=== PATIENT | male | born 1955 | race Caucasian/White ===

== ENCOUNTER → 2024-01-04 | Outpatient (CLI) | payer MEDICARE ==
--- NOTE | 2024-01-05 13:33 | MR ---
EXAMINATION TYPE: MR knee LT wo con DATE OF EXAM: 01/04/2024 COMPARISON: None HISTORY: Left knee pain. TECHNIQUE: Multiplanar, multisequence imaging of the right knee is performed without IV contrast. FINDINGS: There is a tiny joint effusion. There is no bone contusion or fracture. There is a large horizontal tear and into the inferior surface of the body and posterior horn medial meniscus. The lateral meniscus is intact. The cruciate and collateral ligaments are intact. Patellar and quadriceps tendons are normal. There is mild chondromalacia patella involving the medial patellar facet cartilage. IMPRESSION: 1. Tear of the body and posterior horn of the medial meniscus as described. 2. No ligamentous injury. 3. Mild chondromalacia patella. 4. Tiny joint effusion.
== END | disposition home or self-care (01) ==
LOC: RADMRIMAIN 12:48
PROVIDERS: ATTEND Orthopaedic Surgery
DX: S83.242A Other tear of medial meniscus, current injury, left knee, initial encounter (principal); M25.462 Effusion, left knee; M22.42 Chondromalacia patellae, left knee

== ENCOUNTER → 2024-01-30 | Outpatient (CLI) | payer MEDICARE ==
--- NOTE | 2024-01-30 19:59 | MR ---
EXAMINATION TYPE: MR knee RT wo con DATE OF EXAM: 01/30/2024 COMPARISON: None HISTORY: Right knee pain TECHNIQUE: Multiplanar, multisequence imaging of the right knee is performed without IV contrast. FINDINGS: There is no bone contusion or fracture. There is no joint effusion. The medial and lateral collateral ligaments and cruciate ligaments are intact. There is a complex horizontal tear of the posterior horn and body of the medial meniscus extending to the inferior surface. The lateral meniscus is intact. There is mild chondromalacia patella. The quadriceps and patellar tendons are intact. IMPRESSION: 1. Tear of the medial meniscus as described above. 2. No ligamentous injury. 3. no bone contusion, fracture or joint effusion. 4. mild chondromalacia patella
== END | disposition home or self-care (01) ==
LOC: RADMRIMAIN 10:47
PROVIDERS: ATTEND Orthopaedic Surgery
DX: S83.241A Other tear of medial meniscus, current injury, right knee, initial encounter (principal)

== ENCOUNTER 2024-02-20 09:07 | Day surgery (SDC) | payer MEDICARE ==
[2024-02-15 17:28] VITALS: BMI 25.0
--- NOTE | 2024-02-19 12:22 | HP ---
HISTORY AND PHYSICAL DATE OF SCHEDULED SURGERY: 02/20/2024. HISTORY OF PRESENT ILLNESS: Pedro León is a 68-year-old gentleman seen with progressive left knee pain. We discussed options. He elected to proceed with left knee arthroscopy. Consent was obtained. Cardiac clearance was provided. PAST MEDICAL HISTORY: Hypertension, lwq-pyvpwva-jabxoezpo diabetes, and hyperlipidemia. PAST SURGICAL HISTORY: Noncontributory. DAILY MEDICATIONS: 1. Aspirin. 2. Lisinopril. 3. Metformin. 4. Metoprolol. 5. Pravastatin. 6. Tylenol. ALLERGIES: None. SOCIAL HISTORY: Denies tobacco use. PHYSICAL EVALUATION OF LEFT KNEE: His range of motion is 0 to 130 degrees. Mild effusion. Tenderness to medial joint line. Positive medial Amber's. Ligaments stable. Hip rotation without pain. Distal neurovascular exam is intact. IMAGING STUDIES: Left knee radiographs revealed mild osteoarthritis. Left knee MRI revealed medial meniscal tear. IMPRESSION: 1. Internal derangement of left knee with medial meniscal tear. 2. Hypertension. 3. Hyperlipidemia. 4. Zjt-ycunlup-sdpnmactd diabetes. PLAN: Left knee arthroscopy with partial medial meniscectomy and debridement. MMODL / IJN: [id number] /
[~2024-02-20 09:07] MED LIST: DEXAMETHASONE SOD PHOSPHATE 4 MG/ML 1 ML VIAL IV ONE; HYDROmorphone 0.5 MG/0.5 ML SYRINGE IVP PRN; ONDANSETRON 4 MG/2 ML VIAL IVP ONE; fentaNYL (PF) 50 MCG/ML 2 ML AMP IV PRN
[2024-02-20 09:58] LABS: Glucose,Whole Blood 107 mg/dL (70-110)
[2024-02-20] MEDS: LACTATED RINGERS 1,000 ML IV SCH (10:00)
[2024-02-20] MEDS: ONDANSETRON 4 MG/2 ML VIAL IVP STA (10:01)
[2024-02-20] MEDS: DEXAMETHASONE SOD PHOSPHATE 4 MG/ML 1 ML VIAL IVP STA (10:01)
[2024-02-20] MEDS: IV FLUID CONTINUATION 1,000 ML IV ONE (10:02)
[2024-02-20] MEDS ORDERED: MIDAZOLAM 2 MG/2 ML VIAL ONE (10:20)
[2024-02-20] MEDS ORDERED: LIDOCAINE 1% INJ 10MG/ML (20 ML MDV) ONE (10:20)
[2024-02-20] MEDS ORDERED: GLYCOPYRROLATE 0.2 MG/ML 2 ML VIAL ONE (10:20)
[2024-02-20] MEDS ORDERED: PROPOFOL 10 MG/ML 20 ML VIAL IV ONE (10:20)
[2024-02-20] MEDS ORDERED: fentaNYL (PF) 50 MCG/ML 2 ML AMP ONE (10:20)
[2024-02-20] MEDS: BUPIVACAINE (PF) 0.25% 30 ML VIAL SQ ONE (10:49)
--- NOTE | 2024-02-20 11:19 | P.OP ---
Date of Procedure: 02/20/24 Preoperative Diagnosis: Internal derangement left knee Postoperative Diagnosis: 1. Tear medial and lateral meniscus left knee 2. Grade IV chondromalacia femoral sulcus left knee 3. Reactive synovitis medial, lateral and suprapatellar compartments left knee 4. Grade II/III chondromalacia medial femoral condyle left knee Procedure(s) Performed: 1. Arthroscopic partial medial and lateral meniscectomy left knee 2. Arthroscopic microfracture femoral sulcus left knee 3. Arthroscopic partial synovectomy medial, lateral and suprapatellar compartments left knee 4. Arthroscopic chondroplasty medial femoral condyle left knee Anesthesia: ASAA, local Surgeon: Silas Moreno Estimated Blood Loss (ml): 6 Pathology: none sent Condition: stable Disposition: PACU Indications for Procedure: 68-year-old patient seen with progressive left knee pain. After having treatment options discussed, he elected to proceed with arthroscopy Operative Findings: See description of procedure Description of Procedure: Patient was taken to the operative suite. Patient underwent a general anesthetic by the department of anesthesia. Patient was given preoperative antibiotics. The left lower extremity was placed in a well-padded arthroscopic leg riojas. The left leg was prepped and draped in the normal sterile orthopedic fashion. A lateral parapatellar and suprapatellar incision was made. Trochars were inserted. Arthroscopy was initiated. Suprapatellar pouch revealed diffuse thick reactive synovitis. The patellofemoral joint appeared to articular congruently. There was grade III/IV chondromalacia of the femoral sulcus with osteochondral flap tears present. The scope was guided into the medial gutter. No loose bodies or plica were identified. The scope was then guided into the medial compartment. A medial parapatellar incision was made. Trocar inserted followed by probe. There was a complex tear involving the mid body and posterior horn of the medial meniscus. There were grade II/III chondromalacia changes medial femoral condyle with some osteochondral flap tears. There was some thick reactive synovitis anteriorly. I performed a partial medial meniscectomy getting down to stable meniscal tissue. I performed a chondroplasty of the medial femoral condyle getting down to stable osteochondral tissue. I performed a partial synovectomy decompressing the reactive synovitis. The residual meniscus was probed and was found to be stable. The residual osteochondral surface medial femoral condyle was stable. There was good decompression of the synovitis. Scope and probe were then guided into the intercondylar notch. Cruciates were identified, probed and found to be stable. The scope and probe were then guided into lateral compartment. There was a radial tear involving the anterior horn of the lateral meniscus. There were grade I chondromalacia changes lateral femoral condyle without tears. There was some thick reactive synovitis anteriorly. I performed a partial lateral meniscectomy getting down to stable meniscal tissue. I performed a partial synovectomy decompressing the reactive synovitis. The residual meniscus was stable. There was good decompression of the synovitis. The scope was in guided back into the suprapatellar compartment. I used a motorized shaver into the suprapatellar compartment. I debrided some piecemeal fragments of meniscus that I encountered. I performed a chondroplasty of the femoral sulcus getting down to stable osteochondral tissue. I performed a partial synovectomy decompressing the thick reactive synovitis. I did note an area of grade IV chondromalacia involving the medial aspect of the femoral sulcus measuring 8 mm x 1.2 cm. I introduced a microfracture awl and I performed microfracture to that area penetrating the bone with resultant bleeding at the microfracture site. The residual osteochondral surface was stable. I now took more look around the entire knee, no residual debris. Instruments were now removed from the joint. The joint was infiltrated with .25% Marcaine. Steri-Strips were applied to the portal sites. Sterile dressings were applied. The patient was placed into a CHRIS hose. No tourniquet was utilized. The patient was awakened, transferred to a bed and taken to recovery stable satisfactory condition.
[2024-02-20 11:41] VITALS: TEMP 97.3
[2024-02-20 12:53] VITALS: BP 131/75; PULSE 50; RESP 18
== END 2024-02-20 12:58 | disposition home or self-care (01) ==
LOC: OR 09:07
PROVIDERS: ATTEND Orthopaedic Surgery
DX: S83.232A Complex tear of medial meniscus, current injury, left knee, initial encounter (principal); S83.282A Other tear of lateral meniscus, current injury, left knee, initial encounter; M94.262 Chondromalacia, left knee; M65.862 Other synovitis and tenosynovitis, left lower leg; E11.69 Type 2 diabetes mellitus with other specified complication; E78.5 Hyperlipidemia, unspecified; I10 Essential (primary) hypertension; J44.9 Chronic obstructive pulmonary disease, unspecified; Z79.82 Long term (current) use of aspirin; Z79.84 Long term (current) use of oral hypoglycemic drugs; Z79.899 Other long term (current) drug therapy; F17.210 Nicotine dependence, cigarettes, uncomplicated; X58.XXXA Exposure to other specified factors, initial encounter
CPT/HCPCS: 29880; 29879; 29876; J2250; J1100; J0690; J2405; J2001; J3010; J2704; J0665; J1596

== ENCOUNTER 2024-04-02 06:05 | Day surgery (SDC) | payer MEDICARE ==
[2024-03-31 13:13] VITALS: BMI 25.8
--- NOTE | 2024-04-01 18:16 | HP ---
HISTORY AND PHYSICAL DATE OF SCHEDULED SURGERY: 04/02/2024. HISTORY OF PRESENT ILLNESS: Pedro León is a gentleman seen with progressive right knee pain. We discussed options regarding treatment. He elected to proceed with right knee arthroscopy. Consent was obtained. PAST MEDICAL HISTORY: Hypertension, hkb-udsdcow-kqqapgrul diabetes, gout. PAST SURGICAL HISTORY: Noncontributory. DAILY MEDICATIONS: 1. Allopurinol. 2. Lisinopril. 3. Metformin. 4. Metoprolol. 5. Pravastatin. ALLERGIES: None reported. SOCIAL HISTORY: Denies tobacco use. PHYSICAL EVALUATION OF RFO KNEE: Range of motion is -0 to 120 degrees. Tenderness on the medial joint line. Positive medial Amber's. Ligaments are stable. Hip rotation is without pain. His distal neurovascular exam is intact. RADIOGRAPHCS: An MRI of the right knee revealed a medial meniscal tear. IMPRESSION: 1. Internal derangement of right knee with medial meniscal tear. 2. Hypertension. 3. Hyperlipidemia. 4. Bdy-tocnjqf-nymuvdrjk diabetes. PLAN: Right knee arthroscopy with partial medial meniscectomy and debridement. MMODL / IJN: [id number] /
[~2024-04-02 06:05] MED LIST changes: -DEXAMETHASONE SOD PHOSPHATE 4 MG/ML 1 ML VIAL IV ONE; -HYDROmorphone 0.5 MG/0.5 ML SYRINGE IVP PRN; +LIDOCAINE 1% (10MG/ML) FOR IV START INTRADERMA PRN; -ONDANSETRON 4 MG/2 ML VIAL IVP ONE; -fentaNYL (PF) 50 MCG/ML 2 ML AMP IV PRN
[2024-04-02] MEDS ORDERED: HYDROmorphone 0.5 MG/0.5 ML SYRINGE IVP PRN (07:00)
[2024-04-02 07:02] LABS: Glucose,Whole Blood 132 mg/dL (70-110)
[2024-04-02] MEDS: IV FLUID CONTINUATION 1,000 ML IV ONE (07:11)
[2024-04-02 07:15] LABS: Basophils # (A) 0.1 k/uL (0-0.2); Basophils % (A) 1 %; Eosinophils # (A) 0.4 k/uL (0-0.7); Eosinophils % (A) 5 %; HCT 45.3 % (39.0-53.0); HGB 15.3 gm/dL (13.0-17.5); Lymphocytes # (A) 3.9 k/uL (1.0-4.8); Lymphocytes % (A) 45 %; MCH 34.1 pg (25.0-35.0); MCHC 33.7 g/dL (31.0-37.0); MCV 101.3 fL (80.0-100.0); Macrocytosis Slight; Mean Platelet Volume 7.2; Monocytes # (A) 0.6 k/uL (0-1.0); Monocytes % (A) 7 %; Neutrophils # (A) 3.4 k/uL (1.3-7.7); Neutrophils % (A) 39 %; Platelet Count 220 k/uL (150-450); RBC 4.48 m/uL (4.30-5.90); RDW 13.5 % (11.5-15.5); WBC 8.7 k/uL (3.8-10.6)
[2024-04-02] MEDS: ONDANSETRON 4 MG/2 ML VIAL IVP ONE (07:19)
[2024-04-02] MEDS: LACTATED RINGERS 1,000 ML IV SCH (07:19)
[2024-04-02] MEDS ORDERED: MIDAZOLAM 2 MG/2 ML VIAL ONE (07:25)
[2024-04-02] MEDS ORDERED: LIDOCAINE 1% INJ 10MG/ML (20 ML MDV) ONE (07:25)
[2024-04-02] MEDS ORDERED: fentaNYL (PF) 50 MCG/ML 2 ML AMP ONE (07:25)
[2024-04-02] MEDS ORDERED: PROPOFOL 10 MG/ML 20 ML VIAL IV ONE (07:25)
[2024-04-02] MEDS ORDERED: WATER FOR INJECTION, STERILE 10 ML VIAL IV ONE (07:25)
[2024-04-02] MEDS ORDERED: ePHEDrine 50 MG/ML 1 ML VIAL ONE (07:25)
[2024-04-02 07:27] LABS: ALT 21 U/L (4-49); AST 23 U/L (17-59); African American GFR (CKD) >90 (>60 ml/min/1.73 sqM); Albumin 4.4 g/dL (3.5-5.0); Alkaline Phosphatase 49 U/L (38-126); Anion Gap 6 mmol/L; Blood Urea Nitrogen 13 mg/dL (9-20); Calcium 9.6 mg/dL (8.4-10.2); Carbon Dioxide 22 mmol/L (22-30); Chloride 109 mmol/L (98-107); Glucose 132 mg/dL (74-99); Non-African American GFR(CKD) >90 (>60 ml/min/1.73 sqM); Potassium 4.4 mmol/L (3.5-5.1); Sodium 137 mmol/L (137-145)
[2024-04-02] MEDS: BUPIVACAINE (PF) 0.25% 30 ML VIAL EPIDURAL ONE (07:48)
--- NOTE | 2024-04-02 08:18 | P.OP ---
Date of Procedure: 04/02/24 Preoperative Diagnosis: Internal derangement right knee Postoperative Diagnosis: 1. Tear medial and lateral meniscus right knee 2. Grade IV chondromalacia medial femoral condyle right knee 3. Reactive synovitis medial, lateral and suprapatellar compartments right knee Procedure(s) Performed: 1. Arthroscopic partial medial and lateral meniscectomy right knee 2. Arthroscopic microfracture medial femoral condyle right knee 3. Arthroscopic partial synovectomy medial, lateral and suprapatellar compartments right knee Anesthesia: ASAA, local Surgeon: Silas Moreno Estimated Blood Loss (ml): 5 Pathology: none sent Condition: stable Disposition: PACU Indications for Procedure: 68-year-old patient seen with progressive right knee pain. After having treatment options discussed, he elected to proceed with arthroscopy. Operative Findings: See description of procedure Description of Procedure: Patient was taken to the operative suite. Patient underwent a general anesthetic by the department of anesthesia. Patient was given preoperative antibiotics. The right lower extremity was placed in a well-padded arthroscopic leg riojas. The right leg was prepped and draped in the normal sterile orthopedic fashion. A lateral parapatellar and suprapatellar incision was made. Trochars were inserted. Arthroscopy was initiated. Suprapatellar pouch revealed diffuse thick reactive synovitis. The patellofemoral joint appeared to articular congruently. There was grade II/III chondromalacia of the patella without osteochondral tearing. The scope was guided into the medial gutter. No loose body or plica was identified. The scope was then guided into the medial compartment. A medial parapatellar incision was made. Trocar inserted followed by probe. There was a tear involving the posterior horn of the medial meniscus. There were grade III/IV chondromalacia changes along the medial femoral condyle with some osteochondral flap tears present. There was thick reactive synovitis anteriorly. I performed a partial medial meniscectomy getting down to stable meniscal tissue. I performed a chondroplasty of the medial femoral condyle getting down to stable osteochondral tissue. I performed a partial synovectomy decompressing the thick reactive synovitis anteriorly. I did note under care of exposed bone along the medial femoral condyle measuring just a little over a centimeter. I introduced a microfracture awl and I performed a microfracture to the area of exposed bone penetrating the bone with resultant bleeding at the microfracture site. The residual osteochondral surface was stable. The resi dual meniscus was stable. There was good decompression of the synovitis. Scope and probe were then guided into the intercondylar notch. Cruciates were identified, probed and found to be stable. The scope and probe were then guided into lateral compartment. There was a radial tear mid body lateral meniscus. There were grade I/II chondromalacia changes lateral compartment without tears. There was some reactive synovitis anteriorly. I performed a partial lateral meniscectomy getting down to stable meniscal tissue. I performed a partial synovectomy decompressing the reactive synovitis anteriorly. The residual meniscus was stable. There was good decompression of the synovitis. The scope was in guided back into the suprapatellar compartment. I introduced a motorized shaver into the suprapatellar compartment. I debrided some piecemeal fragments of meniscus I encountered. I performed a partial synovectomy. The shaver was removed. I took 1 more look around the entire knee, no residual debris. Instruments were now removed from the joint. The joint was infiltrated with .25% Marcaine. Steri-Strips were applied to the portal sites. Sterile dressings were applied. The patient was placed into a CHRIS hose. No tourniquet was utilized. The patient was awakened, transferred to a bed and taken to recovery stable satisfactory condition.
[2024-04-02 08:19] VITALS: TEMP 97
[2024-04-02 08:38] VITALS: RESP 16
[2024-04-02 09:02] VITALS: BP 138/81; PULSE 64
== END 2024-04-02 09:15 | disposition home or self-care (01) ==
LOC: OR 06:05
PROVIDERS: ATTEND Orthopaedic Surgery
DX: S83.241A Other tear of medial meniscus, current injury, right knee, initial encounter (principal); S83.281A Other tear of lateral meniscus, current injury, right knee, initial encounter; M10.9 Gout, unspecified; I10 Essential (primary) hypertension; E11.9 Type 2 diabetes mellitus without complications; E78.5 Hyperlipidemia, unspecified; Z79.84 Long term (current) use of oral hypoglycemic drugs; Z79.899 Other long term (current) drug therapy; X58.XXXA Exposure to other specified factors, initial encounter
CPT/HCPCS: 80053; 85025